=== PATIENT | female | born 1960 | race Caucasian/White ===

== ENCOUNTER 2020-11-10 10:57 | Outpatient (CLI) | payer BC ==
[2020-11-11 18:59] LABS: SARS-CoV-2 PCR by NAA Not Detected (NotDetected)
== END 2020-11-10 10:58 | disposition home or self-care (01) ==
LOC: LABBT 10:57
PROVIDERS: ATTEND Anesthesiology Pain Medicine
DX: Z01.818 Encounter for other preprocedural examination (principal); S22.050S Wedge compression fracture of T5-T6 vertebra, sequela; S22.060S Wedge compression fracture of T7-T8 vertebra, sequela; Z20.822 Contact with and (suspected) exposure to COVID-19
CPT/HCPCS: 93005; 93010; U0003; U0005

== ENCOUNTER 2020-11-15 10:30 | Day surgery (SDC) | payer BC ==
[2020-11-14 12:55] VITALS: BMI 36.6
[2020-11-15] MEDS ORDERED: EPINEPHrine 1 MG/ML AMP ONE (12:19)
[2020-11-15] MEDS ORDERED: Iopamidol 0 ML ONE (12:19)
[2020-11-15] MEDS ORDERED: Bupivacaine PF 0.5% 30 ML VIAL ONE (12:19)
[2020-11-15] MEDS ORDERED: Iopamidol 10 ML FS ONE (12:25)
[2020-11-15] MEDS ORDERED: Midazolam HCl 2 mg/2 ml Vial ONE (12:33)
[2020-11-15] MEDS ORDERED: Fentanyl 100 MCG/2 ML VIAL ONE (12:34)
[2020-11-15] MEDS ORDERED: PROPOFOL 200 MG/20 ML VIAL ONE (12:49)
[2020-11-15] MEDS ORDERED: Dexamethasone 20 MG/5 ML VIAL ONE (12:49)
[2020-11-15] MEDS ORDERED: Ondansetron PF 4 MG/2 ML Vial ONE (12:49)
[2020-11-15] MEDS ORDERED: Lidocaine 1% PF 5 ML VIAL ONE (12:49)
[2020-11-15] MEDS ORDERED: Rocuronium Bromide 10 MG/ML (10ML VIAL) ONE (12:49)
[2020-11-15] MEDS ORDERED: SUGAMMADEX SODIUM 200 MG/2 ML VIAL ONE (13:52)
== END 2020-11-15 16:01 | disposition home or self-care (01) ==
LOC: SDC 10:30
PROVIDERS: ATTEND Anesthesiology Pain Medicine
PROC: 0PB43ZX Excision of Thoracic Vertebra, Percutaneous Approach, Diagnostic (ICD-10-PCS; principal; 2020-11-15)
PROC: 0PS43ZZ Reposition Thoracic Vertebra, Percutaneous Approach (ICD-10-PCS; principal; 2020-11-15)
PROC: 0PU43JZ Supplement Thoracic Vertebra with Synthetic Substitute, Percutaneous Approach (ICD-10-PCS; principal; 2020-11-15)
DX: S22.050A Wedge compression fracture of T5-T6 vertebra, initial encounter for closed fracture (principal); S22.060A Wedge compression fracture of T7-T8 vertebra, initial encounter for closed fracture; M54.14 Radiculopathy, thoracic region; I10 Essential (primary) hypertension; Z85.3 Personal history of malignant neoplasm of breast; Z79.899 Other long term (current) drug therapy; Z88.0 Allergy status to penicillin; Z88.1 Allergy status to other antibiotic agents; Z88.2 Allergy status to sulfonamides; Z88.5 Allergy status to narcotic agent; Z88.8 Allergy status to other drugs, medicaments and biological substances
CPT/HCPCS: 72070; 76000; 88305; J0171; J1100; J2250; J2405; J2704; J3010; Q9966; Q9967; S0020

== ENCOUNTER 2022-06-12 12:24 | Outpatient (CLI) | payer BC ==
[~2022-06-12 12:24] MED LIST: Magnevist 469MG/ML 20 ML VIAL ONE
== END 2022-06-12 12:25 | disposition home or self-care (01) ==
LOC: TBSIIMAG 12:24
PROVIDERS: ATTEND Nurse Practitioner Family
DX: S22.079A Unspecified fracture of T9-T10 vertebra, initial encounter for closed fracture (principal); Z98.890 Other specified postprocedural states
CPT/HCPCS: 72157; A9579

== ENCOUNTER 2022-08-20 14:25 | Outpatient (CLI) | payer BC | END 2022-08-20 14:26 | disposition home or self-care (01) | LOC: TBSIIMAG 14:25 | PROVIDERS: ATTEND Anesthesiology Pain Medicine | DX: S32.040A Wedge compression fracture of fourth lumbar vertebra, initial encounter for closed fracture (principal); M47.816 Spondylosis without myelopathy or radiculopathy, lumbar region | CPT/HCPCS: 72148 ==

== ENCOUNTER 2023-02-28 11:50 | Outpatient (CLI) | payer BC | END 2023-02-28 11:51 | disposition home or self-care (01) | LOC: SCSMRI 11:50 | PROVIDERS: ATTEND Nurse Practitioner Family | DX: M48.062 Spinal stenosis, lumbar region with neurogenic claudication (principal); M47.816 Spondylosis without myelopathy or radiculopathy, lumbar region; Z98.890 Other specified postprocedural states | CPT/HCPCS: 72148 ==